=== PATIENT | female | born 1990 | race Two or more races ===

== ENCOUNTER 2022-10-17 14:28 | Outpatient (REF) | payer MEDICAID, SELFPAY ==
--- NOTE | ~2022-10-17 | US_ITS ---
EXAMINATION: US PELVIS CLINICAL INFORMATION: Pelvic pain COMPARISON: None available. TECHNIQUE: Ultrasound of the pelvis is performed using both transabdominal and transvaginal transducers along with Doppler. Transvaginal imaging is performed due to inadequate visualization transabdominally. FINDINGS: Uterus: The uterus is anteverted and measures 9.7 x 3.9 x 6.4 cm. Small amount of fluid in the cervical canal. Nabothian cysts are noted. The double wall endometrial thickness is 6 mm. Tiny amount of fluid in the endometrial canal. The uterus is smooth in contour and has normal myometrial echogenicity. No visible fibroid. Adnexa: Both ovaries are visualized. There is normal color flow to the adnexa. There is no ovarian torsion. Small amount of free fluid adjacent to the ovary. Right ovary measures 5.6 x 2.4 x 3.9 cm. There is a complex cyst in the right ovary measuring 4 x 2.2 x 3.7 cm, likely hemorrhagic cyst. No Doppler vascularity. Left ovary measures 3.2 x 1.7 x 1.1 cm. US/US pelvic and transvaginal IMPRESSION: Complex right ovarian cyst measuring up to 4 cm, likely hemorrhagic cyst. Small amount of free fluid adjacent to the right ovary. No evidence of active ovarian torsion at this time.
== END 2022-10-17 14:29 | disposition home or self-care (01) ==
LOC: HO.US 14:28
PROVIDERS: Visit Provider Student in an Organized Health Care Education/Training Program
DX: R10.2 Pelvic and perineal pain (principal)
CPT/HCPCS: 76830; 76856